=== PATIENT | female | born 1940 | race Caucasian/White ===

== ENCOUNTER 2019-02-27 09:56 | Outpatient (CLI) | payer OTHER ==
[~2019-02-27 09:56] MED LIST: ASPI-1265 PO; CHOL100044 PO; CRAN200C PO; DOCU100C41 PO; GABA600T PO; INSU100C4 SQ; INSU100V15 SQ; LIRA0.6P2 SUBCUT; LISI10TA4 PO; MELA3TAB PO; MIRA50TA PO; MULT-1085 PO; PANT40SU2 PO; ROSU20TA2 PO; VITE1000C PO
== END 2019-02-27 23:59 | disposition home or self-care (01) ==
LOC: 64 CT 09:56
PROVIDERS: ATTEND Internal Medicine
DX: K57.30 Diverticulosis of large intestine without perforation or abscess without bleeding (principal); K43.9 Ventral hernia without obstruction or gangrene; J90 Pleural effusion, not elsewhere classified; J98.11 Atelectasis; S22.088A Other fracture of T11-T12 vertebra, initial encounter for closed fracture; M47.898 Other spondylosis, sacral and sacrococcygeal region; M47.816 Spondylosis without myelopathy or radiculopathy, lumbar region; E11.9 Type 2 diabetes mellitus without complications; Z79.4 Long term (current) use of insulin; Z79.82 Long term (current) use of aspirin; X58.XXXA Exposure to other specified factors, initial encounter; Y93.89 Activity, other specified; Y92.89 Other specified places as the place of occurrence of the external cause; Y99.8 Other external cause status
CPT/HCPCS: 74176

== ENCOUNTER 2019-03-06 11:51 | Outpatient (CLI) | payer OTHER ==
[2019-03-06] MEDS ORDERED: diatrozoate meglu/diatrozoate sod (37% iodine) 120ML oral solution ONE (11:52)
== END 2019-03-06 23:59 | disposition home or self-care (01) ==
LOC: 64 CT 11:51
PROVIDERS: ATTEND Internal Medicine
DX: K57.30 Diverticulosis of large intestine without perforation or abscess without bleeding (principal); E11.9 Type 2 diabetes mellitus without complications; E66.01 Morbid (severe) obesity due to excess calories; Z90.49 Acquired absence of other specified parts of digestive tract
CPT/HCPCS: 74176; Q9963